=== PATIENT | female | born 1975 | race Hispanic/Latino ===

== ENCOUNTER 2018-01-09 06:32 | Emergency (ER) | payer MEDICAID ==
[~2018-01-09] VITALS: Ht 157.5 cm; Wt 72.6 kg
[~2018-01-09 06:32] MED LIST: Z.0.FLEXERIL10 MG PO; Z.0.NORCO 10-325 T1 PO
[2018-01-09] MEDS ORDERED: KETOROLAC TROMETHAMINE 60 MG/2 ML VIAL IM ONE (06:45)
== END 2018-01-09 07:24 | disposition left against medical advice (07) ==
LOC: ER 06:32
DX: M79.642 Pain in left hand (principal); M79.641 Pain in right hand
CPT/HCPCS: 96372; J1885

== ENCOUNTER 2018-06-11 15:52 | Emergency (ER) | payer MEDICAID, OTHER ==
[~2018-06-11] VITALS: Ht 157.5 cm; Wt 72.6 kg
--- OUTSIDE RECORDS SUMMARY | 2018-06-11 15:55 | XMS REPORT ---
Author Author [facility] Address Unknown Phone Unavailable Care Team Providers Care Food Service Manager Name Role Phone Unavailable Unavailable Payers Payer Name Policy Type Policy Number Effective Date Expiration Date Problems This patient has no known problems. Allergies, Adverse Reactions, Alerts Allergy Name Allergy Type Status Severity Reaction(s) Onset Date Inactive Date Treating Clinician Comments No Known Allergies DA Active U 2015-03-01 00:00:00 Medications This patient has no known medications.
== END 2018-06-11 16:25 | disposition home or self-care (01) ==
LOC: ER 15:52
DX: K08.89 Other specified disorders of teeth and supporting structures (principal); K04.7 Periapical abscess without sinus; M54.9 Dorsalgia, unspecified; G89.29 Other chronic pain
CPT/HCPCS: 99282